=== PATIENT | female | born 1960 | race Caucasian/White ===

== ENCOUNTER 2017-08-21 08:28 | Day surgery (SDC) | payer OTHER | END 2017-08-21 13:45 | disposition home or self-care (01) | LOC: AMB-ENDOS 08:28 | DX: D12.0 Benign neoplasm of cecum (principal); K64.1 Second degree hemorrhoids ==

== ENCOUNTER 2020-11-02 06:06 | Day surgery (SDC) | payer OTHER | END 2020-11-02 10:25 | disposition home or self-care (01) | LOC: AMB-ENDOS 06:06 | PROVIDERS: ATTEND Colon & Rectal Surgery | DX: K62.89 Other specified diseases of anus and rectum (principal); K64.0 First degree hemorrhoids; Z20.822 Contact with and (suspected) exposure to COVID-19 ==